=== PATIENT | male | born 1945 | race Caucasian/White ===

== ENCOUNTER 2021-02-06 06:25 | Emergency (ER) | payer MEDICARE ==
--- NOTE | 2021-02-06 07:03 | EDM.PDOC ---
ED HPI GENERAL MEDICAL PROBLEM - General Chief Complaint: Skin Complaint Stated Complaint: WOODTICK BITE Time Seen by Provider: 02/06/21 06:55 Source of Information: Reports: Patient, Old Records, RN History Limitations: Reports: No Limitations - History of Present Illness INITIAL COMMENTS - FREE TEXT/NARRATIVE: 75 yo male here after he awoke today and found a deer tick attached to his L ant/prox thigh. He removed it and brought it in for eval. He believes that he is UTD on his tetanus. Onset: Today Onset Date: 02/06/21 Duration: Other (unknown) Location: Reports: Lower Extremity, Left Quality: Reports: Other (no pain) Improves with: Reports: None Worsens with: Reports: None Context: Reports: Other (deer tick ) Associated Symptoms: Reports: No Other Symptoms Treatments NUTRITION REPRESENTATIVE: Reports: Other (see below) (tick removal) - Related Data Allergies Allergy/AdvReac Type Severity Reaction Status Date / Time oxycodone Allergy Delusions Verified 02/06/21 06:40 Home Meds: Home Meds Fluticasone Propionate [Flonase Allergy Relief] 2 spray .XX DAILY 02/06/21 [History] HCTZ/Triamterene [Dyazide 25-37.5 MG] 0.5 tab PO DAILY 02/06/21 [History] Mometasone Furoate 200mcg [Asmanex HFA 200mcg] 2 puff .XX DAILY 02/06/21 [History] amLODIPine [Norvasc] 1 tab PO DAILY 02/06/21 [History] atorvaSTATin [Lipitor] 0.5 tab PO DAILY 02/06/21 [History] Past Medical History HEENT History: Reports: Impaired Vision Other HEENT History: wears glasses Cardiovascular History: Reports: Hypertension Respiratory History: Reports: Asthma Social & Family History - Tobacco Use Tobacco Use Status *Q: Never Tobacco User - Recreational Drug Use Recreational Drug Use: No ED ROS GENERAL - Review of Systems Review Of Systems: See Below Constitutional: Reports: No Symptoms Skin: Reports: Bruising (at site of tick attachment) Neurological: Reports: No Symptoms ED EXAM, SKIN/RASH Exam: See Below Exam Limited By: No Limitations General Appearance: Alert, WD/WN, No Apparent Distress Skin: Warm, Dry, No Rash, Ecchymosis (at site of tick attachment), Wound/Incision (tiny wound where tick was removed. ) Location, Skin: Lower Extremity, Left (anterior/prox thigh) Course - Vital Signs Text/Narrative:: [place] tick not engorged, likely not attached long enough to transmit Lymes or other dz's. Last Recorded V/S: Last Vital Signs Temp 36.8 C 02/06/21 06:41 Pulse 67 02/06/21 06:41 Resp 16 02/06/21 06:41 BP 164/77 H 02/06/21 06:41 Pulse Ox 97 02/06/21 06:41 Departure - Departure Time of Disposition: 07:03 Disposition: Home, Self-Care 01 Condition: Good Clinical Impression: Tick bite Qualifiers: Encounter type: initial encounter Qualified Code(s): W57.XXXA - Bitten or stung by nonvenomous insect and other nonvenomous arthropods, initial encounter - Discharge Information *PRESCRIPTION DRUG MONITORING PROGRAM REVIEWED*: Not Applicable *COPY OF PRESCRIPTION DRUG MONITORING REPORT IN PATIENT CESAR: Not Applicable Instructions: Tick Bite Information, Adult, [id number] Referrals: PCP,None [Primary Care Provider] - Additional Instructions: Keep area clean with soap and water. Use Benedryl for itch. Recheck as needed. Sepsis Event Note (ED) - Evaluation Sepsis Screening Result: No Definite Risk - Focused Exam Vital Signs: Vital Signs Temp Pulse Resp BP Pulse Ox 02/06/21 06:41 36.8 C 67 16 164/77 H 97
== END 2021-02-06 07:12 | disposition home or self-care (01) ==
LOC: JP.ED 06:25
DX: S70.362A Insect bite (nonvenomous), left thigh, initial encounter (principal); I10 Essential (primary) hypertension; J45.909 Unspecified asthma, uncomplicated; Z79.899 Other long term (current) drug therapy; Z88.5 Allergy status to narcotic agent; W57.XXXA Bitten or stung by nonvenomous insect and other nonvenomous arthropods, initial encounter
CPT/HCPCS: 99282

== ENCOUNTER 2021-02-13 14:49 | Emergency (ER) | payer OTHER, MEDICARE ==
[2021-02-13] MEDS ORDERED: cefTRIAXone 1 GM in Sodium Chloride 0.9% 50 ML IV ONE (17:08)
[2021-02-13] MEDS ORDERED: Doxycycline 100 MG Cap PO ONE (17:08)
--- NOTE | 2021-02-13 18:06 | EDM.PDOC ---
ED HPI GENERAL MEDICAL PROBLEM - General Chief Complaint: General Stated Complaint: FEVER, BODY ACHES Time Seen by Provider: 02/13/21 16:45 Source of Information: Reports: Patient, Family History Limitations: Reports: No Limitations - History of Present Illness INITIAL COMMENTS - FREE TEXT/NARRATIVE: 75-year-old male was seen 1 week ago with a tick bite in his left groin, it was evaluated and establish that it was a very brief insect bite with a small local reaction and no treatment was needed. Several days later the patient started to feel tired, uncomfortable, developed joint pains and muscle pain and for the last 48 hours has had fever and a headache. The tick bite has become more bruised and increased redness but no target lesion or rashes develop. He arrives with a temperature of 101.4, generalized muscle aches and uncomfortable but no nausea or vomiting, no respiratory symptoms, no abdominal symptoms. He is usually very healthy. Onset: Gradual Duration: Day(s): (Symptoms for the last 4 days) Location: Reports: Generalized (Muscle aches and fever) Associated Symptoms: Reports: Fever/Chills, Headaches, Loss of Appetite, Malaise, Weakness. Denies: Chest Pain, Cough, Nausea/Vomiting, Shortness of Breath Generalized Pain Score (Numeric/FACES): 6 - Related Data Allergies Allergy/AdvReac Type Severity Reaction Status Date / Time oxycodone Allergy Delusions Verified 02/13/21 16:36 Home Meds: Home Meds Fluticasone Propionate [Flonase Allergy Relief] 2 spray .XX DAILY 02/06/21 [History] HCTZ/Triamterene [Dyazide 25-37.5 MG] 0.5 tab PO DAILY 02/06/21 [History] Mometasone Furoate 200mcg [Asmanex HFA 200mcg] 2 puff .XX DAILY 02/06/21 [History] amLODIPine [Norvasc] 5 mg PO DAILY 02/06/21 [History] atorvaSTATin [Lipitor] 0.5 tab PO DAILY 02/06/21 [History] Aspirin 81 mg PO DAILY 02/13/21 [History] Past Medical History HEENT History: Reports: Impaired Vision Other HEENT History: wears glasses Cardiovascular History: Reports: Hypertension Respiratory History: Reports: Asthma Social & Family History - Tobacco Use Tobacco Use Status *Q: Never Tobacco User - Caffeine Use Caffeine Use: Reports: Coffee - Recreational Drug Use Recreational Drug Use: No ED ROS GENERAL - Review of Systems Review Of Systems: See Below Constitutional: Reports: Fever, Chills, Malaise. Denies: Diaphoresis HEENT: Denies: Throat Pain Respiratory: Denies: Shortness of Breath, Cough Cardiovascular: Denies: Chest Pain, Palpitations Endocrine: Reports: Fatigue GI/Abdominal: Reports: No Symptoms : Reports: No Symptoms Musculoskeletal: Reports: Muscle Pain (Generalized aching and discomfort) Skin: Reports: Other (Increased bruising and erythema in the left groin secondary to a tick bite 1 week ago) Neurological: Reports: Headache. Denies: Confusion, Dizziness Psychiatric: Reports: No Symptoms ED EXAM, GENERAL - Physical Exam Exam: See Below Exam Limited By: No Limitations General Appearance: Alert, No Apparent Distress (Looks uncomfortable but not distressed) Eye Exam: Bilateral Eye: Normal Inspection (Well-hydrated, no jaundice) Head: Atraumatic Neck: Supple, Non-Tender Respiratory/Chest: Lungs Clear Cardiovascular: Regular Rate, Rhythm. No: Tachycardia GI/Abdominal: Soft, Non-Tender Extremities: Other (In the left groin the patient does have a small scab s urrounded by erythema and some bruising and ecchymosis secondary to a tick bite 1 week ago. No objective joint swelling or erythema but joints are stiff with passive range of motion and somewhat sore) Neurological: Alert, Oriented Lymphatic: No Adenopathy (I do not appreciate adenopathy in the groin or elsewhere) Course - Vital Signs Last Recorded V/S: Last Vital Signs Temp 101.1 F H 02/13/21 16:32 Pulse 67 02/13/21 17:23 Resp 14 02/13/21 17:23 BP 139/78 02/13/21 17:23 Pulse Ox 95 02/13/21 17:23 - Orders/Labs/Meds Labs: Laboratory Tests 02/13/21 02/13/21 Range/Units 17:30 17:30 WBC 5.1 (4.5-11.0) K/uL RBC 5.07 (4.30-5.90) M/uL Hgb 14.6 (12.0-15.0) g/dL Hct 43.9 (40.0-54.0) % MCV 87 (80-98) fL MCH 29 (27-31) pg MCHC 33 (32-36) % Plt Count 187 (150-400) K/uL Neut % (Auto) 87.0 H (36-66) % Lymph % (Auto) 6.1 L (24-44) % [place] % (Auto) 6.3 H (2-6) % Eos % (Auto) 0.0 L (2-4) % Baso % (Auto) 0.6 (0-1) % Sodium 138 L (140-148) mmol/L Potassium 3.1 L (3.6-5.2) mmol/L Chloride 100 (100-108) mmol/L Carbon Dioxide 25 (21-32) mmol/L Anion Gap 16.1 H (5.0-14.0) mmol/L BUN 18 (7-18) mg/dL Creatinine 1.2 (0.8-1.3) mg/dL Est Cr Clr Drug Dosing 52.25 mL/min Estimated GFR (MDRD) 59 L (>60) Glucose 94 (74-106) mg/dL Calcium 8.6 (8.5-10.1) mg/dL Total Bilirubin 0.6 (0.2-1.0) mg/dL AST 34 (15-37) U/L ALT 34 (12-78) U/L Alkaline Phosphatase 68 (46-116) U/L Total Protein 6.6 (6.4-8.2) g/dL Albumin 3.3 L (3.4-5.0) g/dL Globulin 3.3 (2.3-3.5) g/dL Albumin/Globulin Ratio 1.0 L (1.2-2.2) Meds: Medications Discontinued Medications Generic Name Dose Route Start Last Admin Trade Name Freq PRN Reason Stop Dose Admin Doxycycline Hyclate 200 mg 02/13/21 17:08 02/13/21 17:30 Doxycycline 100 Mg Cap PO 02/13/21 17:09 200 mg ONETIME ONE Administration Ceftriaxone Sodium 1 gm/ 50 mls @ 100 mls/hr 02/13/21 17:08 02/13/21 17:29 Sodium Chloride IV 02/13/21 17:37 100 mls/hr ONETIME ONE Administration - Re-Assessments/Exams Free Text/Narrative Re-Assessment/Exam: 02/14/21 11:52 CBC and CMP were obtained which were reassuring, white count is normal and liver functions are normal. Tick panel was also added, patient was given 1 g of Rocephin IV and started on doxycycline pending labs. A 200 mg dose was given orally in the emergency room, and he will continue 100 mg twice daily starting tomorrow. He can return anytime if worsening or concerns, otherwise we will be in touch with him with the results of the labs. Departure - Departure Time of Disposition: 18:53 Disposition: Home, Self-Care 01 Clinical Impression: Tick bite Qualifiers: Encounter type: initial encounter Qualified Code(s): W57.XXXA - Bitten or stung by nonvenomous insect and other nonvenomous arthropods, initial encounter Fever Qualifiers: Fever type: unspecified Qualified Code(s): R50.9 - Fever, unspecified - Discharge Information Instructions: Tick Bite Information, Adult, [id number] Referrals: PCP,None [Primary Care Provider] - Forms: ED Department Discharge Care Plan Goals: Take doxycycline twice daily until gone as prescribed, starting tomorrow morning. Return anytime if worsening such as vomiting the medication, increasing pain, confusion, shortness of breath or other concerns. We will be in touch with you with your lab results in the next several days. Sepsis Event Note (ED) - Evaluation Sepsis Screening Result: No Definite Risk
[2021-02-17 12:13] LABS: LYME IGG/IGM AB <0.91 ISR (0.00-0.90)
[2021-02-17 13:13] LABS: HGE IGG TITER Negative (Neg:<1:64); HGE IGM TITER Negative (Neg:<1:20)
[2021-02-17 16:08] LABS: BABESIA MICROTI IGG <1:10 (Neg:<1:10); BABESIA MICROTI IGM <1:10 (Neg:<1:10)
== END 2021-02-13 18:53 | disposition home or self-care (01) ==
LOC: JP.ED 14:49
DX: S30.861A Insect bite (nonvenomous) of abdominal wall, initial encounter (principal); I10 Essential (primary) hypertension; J45.909 Unspecified asthma, uncomplicated; Z88.5 Allergy status to narcotic agent; W57.XXXA Bitten or stung by nonvenomous insect and other nonvenomous arthropods, initial encounter
CPT/HCPCS: 36415; 80053; 85025; 86666; 86753; 96365; 99283; A9270; J0696; 86618

== ENCOUNTER 2025-01-21 05:44 | Emergency (ER) | payer OTHER | END 2025-01-21 06:45 | disposition home or self-care (01) | LOC: JP.ED 05:44 | DX: S70.362A Insect bite (nonvenomous), left thigh, initial encounter (principal); Z88.5 Allergy status to narcotic agent; Z79.899 Other long term (current) drug therapy; Z79.82 Long term (current) use of aspirin; W57.XXXA Bitten or stung by nonvenomous insect and other nonvenomous arthropods, initial encounter; Y93.89 Activity, other specified | CPT/HCPCS: 99281; 99283 ==